=== PATIENT | female | born 1995 | race Caucasian/White ===

== ENCOUNTER 2019-08-26 18:24 | Emergency (ER) | payer BC, SELFPAY ==
--- NOTE | 2019-08-26 18:25 | ED.CHESTPAIN ---
HPI - Chest Pain General Chief Complaint: Chest Pain Stated Complaint: chest tightness/sob/heart racing/light headed Time Seen by Provider: 08/26/19 18:33 Source: patient and RN notes reviewed Mode of arrival: ambulatory Limitations: no limitations History of Present Illness HPI narrative: 24-year-old female presents with concern for mid sternal chest pain that was present when she woke up this morning. Reports an instance around 230 this afternoon where she felt like she had a fast heartbeat, and had shortness of breath, hot flashes, sweats. Reports those symptoms lasted about 1 hour. She reports the chest pain continues. She reports history of anxiety, depression with panic attacks in the past, however reports the symptoms are slightly different than her previous panic attacks. MD complaint: chest pain Related Data Allergies Allergy/AdvReac Type Severity Reaction Status Date / Time No Known Allergies Allergy Mild Verified 07/05/16 14:24 Review of Systems Review of Systems: Narrative: CONSTITUTIONAL: Denies malaise, chills, sweats, or fever. EYES: Denies visual changes, redness, or discharge. ENT: Denies rhinorrhea, congestion, sinus pain, otalgia or sore throat. CARDIOVASCULAR: Reports midsternal chest pain, palpitations earlier today. Denies edema. RESPIRATORY: Denies cough or dyspnea. Reports chest pain worsens with deep breathing GASTROINTESTINAL: Denies abdominal pain, nausea, vomiting, diarrhea SKIN: Denies rash or itching. MUSCULOSKELETAL: Denies back pain, joint pain, or myalgia. NEUROLOGIC: Denies numbness, weakness, or headache. PSYCHIATRIC: Reports history of anxiety or depression. All systems reviewed & are unremarkable except as noted in HPI and below PMFSH Comments At time of signature, agree with nursing past medical, surgical, social and family history. There is no relevant family history pertinent to the presenting complaint Exam Narrative: Exam Narrative: GENERAL: Well-appearing, well-nourished, and in no acute distress. HEAD: Normocephalic, atraumatic. EYES: PERRLA, conjunctivae clear, and EOMI. No nystagmus. ENT: Nares clear, turbinates pink, no rhinorrhea or epistaxis. Mucous membranes moist. TM pearly roach with sharp light reflex bilaterally; no tragal tenderness. Oropharynx without erythema or lesions. Tonsils not enlarged and without exudate. NECK: Supple. No lymphadenopathy. No jugular venous distension, thyromegaly, or carotid bruits. Carotids were easily palpable bilaterally. CHEST: No respiratory distress. Clear to auscultation. No bony deformities, no asymmetry. Speaks in full sentences. Chest pain reproducible with sternal rub. HEART: Regular rate and rhythm. No murmur heard. Normal peripheral pulses. ABDOMEN: Soft, nontender, nondistended, normal active bowel sounds, no palpable masses. EXTREMITIES: Normal range of motion. No edema. Normal strength and sensation. SKIN: Warm, dry, no rash. NEURO: Alert and oriented x3. No focal deficits PSYCH: Normal mood and affect Course Course Emergency Course: Discussed with patient limited diagnostic availability at the [facility], option of transferring to the emergency department for further evaluation. Patient and her mother chooses this time to not seek further evaluation in the emergency department, understand reasons to seek treatment if symptoms worsen or do not improve. Patient is aware of, understands and agrees to treatment plan. Anticipatory guidance given. Patient agrees to follow-up as directed and is aware of reasons to seek care at the emergency department. Portions of this record may have been created with voice recognition software Vital Signs Vital signs: Vital Signs Temperature 98.6 F 08/26/19 18:26 Pulse Rate 54 L 08/26/19 18:26 Respiratory Rate 16 08/26/19 18:26 Blood Pressure 127/56 L 08/26/19 18:26 Pulse Oximetry 100 08/26/19 18:26 Temperature 98.6 F 08/26/19 18:26 Pulse Rate 54 L 08/26/19 18:26 Respirator
[2019-08-26 18:26] VITALS: BP 127/56; PULSE 54; RESP 16; TEMP 37; O2SAT 100
--- NOTE | 2019-08-26 18:39 | ECG_ITS ---
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
--- NOTE | 2019-08-26 18:55 | PC.NURSE ---
After review of EKG, exam and discussion--Radha Flores NP -- will go to ED if symptoms change or worsen
== END 2019-08-26 19:00 | disposition home or self-care (01) ==
PROVIDERS: Emergency Provider Nurse Practitioner
DX: R07.9 Chest pain, unspecified (principal)
CPT/HCPCS: 93005; 99203; G0463

== ENCOUNTER 2021-06-03 17:44 | Emergency (ER) | payer BC, SELFPAY ==
--- NOTE | ~2021-06-03 | US_ITS ---
EXAMINATION: US OB <= 14 weeks fetus EXAM DATE: 06/03/2021 18:34 INDICATION: and vaginal bleeding. 1st trimester. TECHNIQUE: Pelvic obstetrical transabdominal sonogram was performed by a technologist. There are mu ltiple grayscale and Doppler images available for interpretation. There are no earlier studies of th is gestation for comparison. FINDINGS: Uterus measures 13.6 x 8.1 x 7.2 cm. Endometrial stripe measures 23 mm, thickened, could be decidual reaction given history provided. There is no intrauterine gestation identified. There is no free pelvic fluid. Right adnexa: The ovary is not identified. There is no adnexal mass. Left adnexa: The ovary is not identified. There is no adnexal mass. IMPRESSION: No intrauterine or extrauterine gestation sac identified. Thickened endometrium, could be decidual reaction. Retained products of conception not excludable. Clinical correlation, consider fo llow-up exam. Reviewed, dictated and finalized at location A. E MASTER IMPRESSION: No intrauterine or extrauterine gestation sac identified. Thickened endometrium, could be decidual reaction. Retained products of conception not e xcludable. Clinical correlation, consider follow-up exam.
--- NOTE | 2021-06-03 18:08 | ED.ABDPAIN ---
HPI - Abdominal Pain General Chief Complaint: Vaginal Bleeding Stated Complaint: problem Time Seen by Provider: 06/03/21 18:02 History of Present Illness HPI narrative: Patient is a 25-year-old female approximately 14 weeks who comes into the ED today complaining of vaginal bleeding and lower abdominal pain. Patient reports that she has been bleeding for the last 2 to 3 days. Changing pads every 3-4 hours on average. He has been having lower abdominal pain that started earlier today. Pain is seems to be intermittent, waxing and waning in severity. Denies any urinary symptoms, fevers or any other concerns. G1, P0. Followed by Dr. Gordon and Dr. Downs. Related Data Home Medications Medication Instructions Recorded Confirmed metoclopramide HCl 06/03/21 Allergies Allergy/AdvReac Type Severity Reaction Status Date / Time No Known Allergies Allergy Mild Verified 07/05/16 14:24 Review of Systems Constitutional: Constitutional: Reports as per HPI, Denies fever(s), Denies night sweats and Denies weakness Cardiovascular: Cardiovascular: Denies chest pain, Denies edema, Denies leg edema, Denies dyspnea and Denies orthopnea Respiratory: Respiratory: Denies cough and Denies dyspnea Gastrointestinal: Gastrointestinal: Denies abdominal pain, Denies constipation, Denies diarrhea, Denies nausea and Denies vomiting Genitourinary: Genitourinary: Reports as per HPI Musculoskeletal: Musculoskeletal: Denies abnormal gait, Denies back pain, Denies numbness and Denies tingling Neurologic: Denies Abnormal speech present, Denies abnormal gait, Denies numbness, Denies tingling and Denies weakness Psychiatric: Psychiatric: Denies homicidal ideation and Denies suicidal ideation Exam Narrative: Uncomfortable appearing Const: General: cooperative, healthy appearing, comfortable, no acute distress, well developed, alert, awake and Physically active Orientation/consciousness: patient oriented x3 HENMT: Head: normal to inspection, normocephalic and atraumatic Ears: external ears normal General nose exam: Normal external nose present Eyes: Pupils: Equal, round and reactive pupils present EOM: EOMs intact bilaterally Neck: Neck: normal visual inspection Chest: Chest palpation & inspection: normal inspection of the chest and no tenderness Resp: Effort & Inspection: normal respiratory effort and able to speak in complete sentences Auscultation: clear to auscultation bilaterally Cardio: Rate: regular rate Rhythm: regular rhythm GI: Inspection: normal to inspection GI Palp: Yes abdominal tenderness and Yes Other GI palpation findings present (Tender to palpate over lower abdomen) : General: Yes no CVA tenderness Other: Patient in the process of passing products of conception Back/Spine/Pelvis: Back: no CVA tenderness Skin: General skin exam: normal color and no rashes or lesions noted Lesions: no lesions Neuro: General: patient oriented x3, no focal motor deficits and CN's II-XI intact bilaterally Cranial nerves: Yes Equal, round and reactive pupils present Speech: No Abnormal speech present Extrem: General: normal to inspection and full ROM Psych: Appearance: grossly normal and well kempt Mental Status: mental status grossly normal Speech and movement: Normal speech and movement present Affect: normal affect Thought process: Normal thought process present Course Course Emergency Course: 6:40 PM Patient's Mom yelled out saying that patient was bleeding heavily. I went into room accompanied by female nurse and there were products of conception that had been passed onto the bed. Umbilical cord still in place. I went and got Dr. Morales for help who passed the placenta. Products and placenta placed in a sterile container. Minimal bleeding afterwards. Dr. Gordon (OBGYN) paged. 7:14 PM Case discussed with Dr. Downs (OBGYN) covering for Dr. Gordon. As long as patient is not bleeding heavily she
[2021-06-03 18:18] LABS: Basophils Percent Auto 0.2 % (0.2-1.2); Eosinophils Percent Auto 0.2 % (0-4.4); Hematocrit 34.4 % (37.0-47.0); Hemoglobin 12.5 g/dL (12.0-15.0); Immature Granulocyte Absolute 0.04 K/mm3 (0.00-0.031); Immature Granulocyte Percent A 0.3 % (0-0.5); Lymphocytes Absolute Auto 1.58 K/mm3 (0.9-3.2); Lymphocytes Percent Auto 12.9 % (18.3-44.2); Mean Corpuscular HGB Conc 36.3 g/dl (32-36); Mean Corpuscular Hemoglobin 30.9 pg (26-34); Mean Corpuscular Volume 84.9 fl (80-100); Mean Platelet Volume 10.2 fl (7.4-10.4); Monocytes Absolute Auto 0.6 K/mm3 (0.1-0.6); Monocytes Percent Auto 4.7 % (2.6-8.5); Neutrophils Percent Auto 81.7 % (45.5-73.1); Platelet Count Result 193 k/mm3 (150-375); Red Blood Count 4.05 M/mm3 (4.2-5.4); Red Cell Distribution Width 12.9 % (11.5-14.5); White Blood Count 12.2 K/mm3 (4.5-10.0)
[2021-06-03 18:28] LABS: Alanine Aminotransferase 14 U/L (4-35); Albumin Level 4.1 g/dL (3.5-5.1); Alkaline Phosphatase 55 U/L (38-126); Anion Gap 9 mmol/L (8-16); Aspartate Amino Transferase 21 U/L (14-36); Bilirubin,Total 0.3 mg/dL (0.2-1.3); Blood Urea Nitrogen 7 mg/dL (7-17); Calcium 9.4 mg/dL (8.4-10.2); Carbon Dioxide 21 mmol/L (22-30); Chloride 104 mmol/L (98-107); Estimated CRCL calculation 204 ml/min; Estimated Glomerular Filt Rate > 60; Glucose 166 mg/dL (65-110); Potassium 3.5 mmol/L (3.4-5.0); Sodium 134 mmol/L (137-145)
[2021-06-03] MEDS: HYDROcodone/acetaminophen (*CRX) 5-325 MG TABLET 1 TAB PO (19:38)
--- NOTE | 2021-06-03 19:47 | PC.NURSE ---
acreage reporter notified of demise
[2021-06-03 20:58] VITALS: BP 132/76; PULSE 76; RESP 18; O2SAT 99
== END 2021-06-03 20:59 | disposition home or self-care (01) ==
PROVIDERS: Physician Assistant Medical; Emergency Provider Emergency Medicine
DX: O03.9 Complete or unspecified spontaneous abortion without complication (principal)
CPT/HCPCS: 36415; 76801; 80053; 84702; 85025; 85461; 88305; 88307; 99284; A9270

== ENCOUNTER 2021-06-09 12:08 | Day surgery (SDC) | payer BC, SELFPAY ==
--- NOTE | ~2021-06-09 | US_ITS ---
EXAMINATION: US pelvic complete w TV EXAM DATE: 06/09/2021 15:02 INDICATION: Pelvic pain, recent miscarriage. Vaginal bleeding. TECHNIQUE: Pelvic transabdominal and transvaginal sonogram was performed. There are multiple graysca le and Doppler images available for interpretation. Comparison is made to prior examination from 05/23. FINDINGS: Uterus measures 11.6 x 7.0 x 6.2 cm. Endometrial stripe measures 24 mm, within normal limi ts. There is no free pelvic fluid. Right adnexa: The ovary measures 3.4 x 2.3 x 2.2 cm and is morphologically normal. Ovarian vascular f low confirmed. Left adnexa: The ovary measures 1.8 x 2.2 x 3.4 cm and is morphologically normal. Ovarian vascular fl ow confirmed. IMPRESSION: Persistent abnormally thickened endometrium at 24 mm, suspicious for retained products of conception. I discussed this finding with Stu Harrison MD at 06/09/2021 15:12 [employer] PLANT [employer]IST. Reviewed, dictated and finalized at location B. PLANT SPECIALIST IMPRESSION: Persistent abnormally thickened endometrium at 24 mm, suspicious fo r retained products of conception. I discussed this finding with Stu Harrison MD at 06/09/2021 15:12 G[employer] PLANT SPECIALIST.
[2021-06-09 12:17] VITALS: BP 129/71; PULSE 97; RESP 18; TEMP 37.1; O2SAT 100
[2021-06-09 13:44] LABS: Basophils Absolute Auto 0.1 K/mm3 (0.0-0.1); Basophils Percent Auto 0.6 % (0.2-1.2); Eosinophils Absolute Auto 0.2 K/mm3 (0-0.3); Eosinophils Percent Auto 1.9 % (0-4.4); Hematocrit 36.3 % (37.0-47.0); Hemoglobin 12.7 g/dL (12.0-15.0); Immature Granulocyte Absolute 0.03 K/mm3 (0.00-0.031); Immature Granulocyte Percent A 0.4 % (0-0.5); Lymphocytes Percent Auto 30.5 % (18.3-44.2); Mean Corpuscular Hemoglobin 30.5 pg (26-34); Mean Corpuscular Volume 87.1 fl (80-100); Mean Platelet Volume 9.7 fl (7.4-10.4); Monocytes Absolute Auto 0.5 K/mm3 (0.1-0.6); Monocytes Percent Auto 6.4 % (2.6-8.5); Neutrophils Absolute Auto 4.7 K/mm3 (1.3-6.7); Neutrophils Percent Auto 60.2 % (45.5-73.1); Platelet Count Result 244 k/mm3 (150-375); Red Blood Count 4.17 M/mm3 (4.2-5.4); Red Cell Distribution Width 12.9 % (11.5-14.5); White Blood Count 7.9 K/mm3 (4.5-10.0)
--- NOTE | 2021-06-09 14:44 | ED.FEMALEGU ---
HPI - Female Genitourinary General Chief complaint: UNION CARPENTER Stated complaint: MISCARRAGE RESIDUAL ABD PAIN Time Seen by Provider: 06/09/21 13:16 History of Present Illness HPI Narrative: Patient is a 25-year-old female who presents ER with pelvic discomfort and vaginal bleeding. Ongoing since having a miscarriage last week. Was seen by her clinical research manager 3 days ago and was told to take ibuprofen and Tylenol as needed for pain. She has no fevers or chills or sweats. She reports she is bleeding through 1 pad an hour since she was evaluated 4 days ago. She reports mild dizziness when standing up. She endorses fatigue. No urinary frequency urgency or dysuria. Related Data Home Medications Medication Instructions Recorded Confirmed venlafaxine mg PO 06/09/21 Allergies Allergy/AdvReac Type Severity Reaction Status Date / Time No Known Allergies Allergy Mild Verified 06/09/21 14:57 Review of Systems Review of Systems: All systems reviewed & are unremarkable except as noted in HPI and below Constitutional: Constitutional: Denies chills and Reports fatigue ENT: Denies nasal congestion and Denies sore throat Gastrointestinal: Gastrointestinal: Reports abdominal pain, Denies nausea and Denies vomiting Genitourinary: Genitourinary: Reports abnormal vaginal bleeding, Denies dysuria, Reports pelvic pain, Denies urinary incontinence and Denies vaginal discharge PMFSH Past Medical History Medical History (Updated 06/09/21 @ 15:34 by Stu Harrison MD) Healthy female adult Surgical History Surgical History (Updated 06/09/21 @ 14:46 by Stu Harrison MD) No history of previous surgery Social History Social History (Updated 06/09/21 @ 14:46 by Stu Harrison MD) Smoking status: Never smoker Exam Narrative: GENERAL: Well-appearing, well-nourished, and in no acute distress. HEAD: Normocephalic, atraumatic. CHEST: Clear to auscultation. No respiratory distress. HEART: Regular rate and rhythm. Normal peripheral pulses. ABDOMEN: Soft, mild suprapubic discomfort without guarding, nondistended. UNION CARPENTER: Normal external genitalia. Scant amount of blood tinged mucus discharge from the cervical os. No CMT. Os is closed. EXTREMITIES: Normal range of motion. No edema. SKIN: Warm, dry, no rash. NEURO: Alert and oriented x3. PSYCH: Normal mood and affect. Course Course Emergency Course: Discussed case with Dr. Gordon. He will take the patient to the OR this evening. Vital Signs Vital signs: Vital Signs Temperature 98.7 F 06/09/21 12:17 Pulse Rate 97 06/09/21 12:17 Respiratory Rate 18 06/09/21 12:17 Blood Pressure 129/71 06/09/21 12:17 Pulse Oximetry 100 06/09/21 12:17 Temperature 98.7 F 06/09/21 12:17 Pulse Rate 65 06/09/21 15:02 Respiratory Rate 18 06/09/21 15:02 Blood Pressure 113/63 06/09/21 15:02 Pulse Oximetry 100 06/09/21 15:02 MDM - Female Genitourinary Lab Data Result diagrams: 06/09/21 13:30 Labs: Lab Results 06/09/21 06/09/21 Range/Units 13:30 13:30 WBC 7.9 (4.5-10.0) K/mm3 RBC 4.17 L (4.2-5.4) M/mm3 Hgb 12.7 (12.0-15.0) g/dL Hct 36.3 L (37.0-47.0) % MCV 87.1 (80-100) fl MCH 30.5 (26-34) pg MCHC 35.0 (32-36) g/dl RDW 12.9 (11.5-14.5) % Plt Count 244 (150-375) k/mm3 MPV 9.7 (7.4-10.4) fl Immature Gran % (Auto) 0.4 (0-0.5) % Neut % (Auto) 60.2 (45.5-73.1) % Lymph % (Auto) 30.5 (18.3-44.2) % [place] % (Auto) 6.4 (2.6-8.5) % Eos % (Auto) 1.9 (0-4.4) % Baso % (Auto) 0.6 (0.2-1.2) % Lymph # (Auto) 2.40 (0.9-3.2) K/mm3 [place] # (Auto) 0.5 (0.1-0.6) K/mm3 Eos # (Auto) 0.2 (0-0.3) K/mm3 Baso # (Auto) 0.1 (0.0-0.1) K/mm3 Abs Immat Gran (auto) 0.03 (0.00-0.031) K/mm3 Absolute Neuts (auto) 4.7 (1.3-6.7) K/mm3 Absolute Nucleated RBC 0.0 (0.0-0.012) K/mm3 Nucleated RBC % 0.0 (0.0-0.2) % Beta HCG, Quant 510.04 mIU/ML UCG Bedside Result
[2021-06-09] MEDS: KETOROLAC 30 MG/ML VIAL (*BKC) IV PUSH (14:58)
[2021-06-09 15:02] VITALS: BP 113/63; PULSE 65; RESP 18; O2SAT 100
--- NOTE | 2021-06-09 15:40 | PM.IMHP ---
H&P: HPI History of Present Illness Date/Time: 06/09/21 15:40 Chief Complaint: vaginal bleeding complete Narrative: 25 yo who presents to the ED for heavy vaginal bleeding. Pt had been having vaginal bleeding throughout her early due to a subchorionic hemorrhage. Pt presented to the ED on 06/03/21 at 14 weeks gestation with complaints of heavy bleeding and passing of tissue. Pt had pelvic US which showed no signs of intrauterine . Pt was seen outpatient and was hemodynamically stable with minimal continued bleeding. Beta HCG levels have been trending downward. Pt presents today complaining of heavy vaignal bleeding. Pt states she has been bleeding through over a pad per hour for a few days this week. She denies any chest pain, syncope, fatigue, palpitation. She denies fevers, chlls, nausea, vomiting. Review of Systems Cardiovascular: Cardiovascular: Denies chest pain, Denies leg edema, Denies palpitations, Denies dyspnea and Denies dyspnea on exertion Respiratory: Respiratory: Denies cough, Denies dyspnea and Denies dyspnea on exertion Gastrointestinal: Gastrointestinal: Denies abdominal pain, Denies constipation, Denies diarrhea, Denies nausea and Denies vomiting Genitourinary: Genitourinary: Denies hematuria, Denies urinary frequency, Denies dysuria, Denies pelvic pain, Denies urinary incontinence and Denies vaginal discharge Neurologic: Reports system reviewed and no additional complaints, except as documented Psychiatric: Psychiatric: Reports no additional psychiatric complaints Endocrine: Endocrine: Denies palpitations PMF Past Medical History Medical History (Updated 06/09/21 @ 15:46 by Willard Gordon MD) Obesity Surgical History Surgical History (Updated 06/09/21 @ 14:46 by Stu Harrison MD) No history of previous surgery Social History Social History (Updated 06/09/21 @ 14:46 by Stu Harrison MD) Smoking status: Never smoker Meds Home Medications and Allergies Home Medications Medication Instructions Recorded Confirmed Type venlafaxine mg PO 06/09/21 History Allergies Allergy/AdvReac Type Severity Reaction Status Date / Time No Known Allergies Allergy Mild Verified 06/09/21 14:57 Vital Signs Vital Signs - 24 hr 06/09/21 12:17 06/09/21 15:02 Temperature 37.1 C Pulse Rate 97 65 Respiratory Rate 18 18 Blood Pressure 129/71 113/63 Pulse Oximetry 100 100 Exam Const: General: no acute distress Eyes: EOM: EOMs intact bilaterally Neck: Neck: supple Thyroid: thyroid normal Chest: Breast/axilla inspection: normal inspection of the breasts Breast/axilla palpation: normal palpation of the breasts, normal palpation of the axillae and no axillary lymphadenopathy Resp: Effort & Inspection: normal respiratory effort Auscultation: clear to auscultation bilaterally Cardio: Rate: regular rate Rhythm: regular rhythm GI: Inspection: non-distended GI Palp: Yes Soft to palpation, No Tenderness to palpation present (GI) and No Guarding due to palpation present (GI) Auscultation: normal bowel sounds : General: No bladder normal to palpation External Female Exam: normal external appearance Speculum Exam - Vagina: normal vaginal discharge and vaginal bleeding Speculum Exam - Cervix: nontender Skin: General skin exam: normal color and no rashes or lesions noted Neuro: Cognition (Neuro): normal cognition Speech: normal speech Extrem: General: normal to inspection and no edema Psych: Mental Status: mental status grossly normal Affect: normal affect H&P: Results Labs Labs: Short CBC 06/09/21 Range/Units 13:30 WBC 7.9 (4.5-10.0) K/mm3 Hgb 12.7 (12.0-15.0) g/dL Hct 36.3 L (37.0-47.0) % Plt Count 244 (150-375) k/mm3 Assessment and Plan Assessment and plan (1) Retained products of conception: Status: Acute Assessment and Plan: Pt presents to ED with complaint of heavy vag
--- NOTE | 2021-06-09 15:44 | WPDANESEPPF ---
Anes - Initial Pre Proc Eval Procedure: Operation Date: 06/09/21 16:00 Proposed Procedures p Suction Dilatation and Curettage - Willard Gordon MD Date/Time: 06/09/21 15:44 Surgeon: Willard Gordon MD Pre Op Diagnosis: MISCARRAGE RESIDUAL ABD PAIN Patient Data Age: 25 Gender: F Height: 1.75 m Weight: 121 kg Last Vital Signs Temp 37.1 C 06/09/21 12:17 Pulse 65 06/09/21 15:02 Resp 18 06/09/21 15:02 BP 113/63 06/09/21 15:02 Pulse Ox 100 06/09/21 15:02 Allergies Allergy/AdvReac Type Severity Reaction Status Date / Time No Known Allergies Allergy Mild Verified 06/09/21 14:57 Home Medications Medication Instructions Recorded Confirmed Type venlafaxine mg PO 06/09/21 History Laboratory Tests 06/09/21 06/09/21 13:30 13:30 WBC 7.9 K/mm3 K/mm3 (4.5-10.0) RBC 4.17 M/mm3 L M/mm3 (4.2-5.4) Hgb 12.7 g/dL g/dL (12.0-15.0) Hct 36.3 % L % (37.0-47.0) MCV 87.1 fl fl (80-100) MCH 30.5 pg pg (26-34) MCHC 35.0 g/dl g/dl (32-36) RDW 12.9 % % (11.5-14.5) Plt Count 244 k/mm3 k/mm3 (150-375) MPV 9.7 fl fl (7.4-10.4) Immature Gran % (Auto) 0.4 % % (0-0.5) Neut % (Auto) 60.2 % % (45.5-73.1) Lymph % (Auto) 30.5 % % (18.3-44.2) [place] % (Auto) 6.4 % % (2.6-8.5) Eos % (Auto) 1.9 % % (0-4.4) Baso % (Auto) 0.6 % % (0.2-1.2) Lymph # (Auto) 2.40 K/mm3 K/mm3 (0.9-3.2) [place] # (Auto) 0.5 K/mm3 K/mm3 (0.1-0.6) Eos # (Auto) 0.2 K/mm3 K/mm3 (0-0.3) Baso # (Auto) 0.1 K/mm3 K/mm3 (0.0-0.1) Abs Immat Gran (auto) 0.03 K/mm3 K/mm3 (0.00-0.031) Absolute Neuts (auto) 4.7 K/mm3 K/mm3 (1.3-6.7) Absolute Nucleated RBC 0.0 K/mm3 K/mm3 (0.0-0.012) Nucleated RBC % 0.0 % % (0.0-0.2) Beta HCG, Quant 510.04 mIU/ML mIU/ML Patient hx anesthesia problems: none Family hx anesthesia problems: none Results Review: All pre-operative results and documents have been reviewed as part of the pre-operative evaluation. [facility] Past Medical History Medical History (Updated 06/09/21 @ 15:46 by Willard Gordon MD) Obesity Surgical History Surgical History (Updated 06/09/21 @ 14:46 by Stu Harrison MD) No history of previous surgery Social History Social History (Updated 06/09/21 @ 14:46 by Stu Harrison MD) Smoking status: Never smoker Anes - Eval Final PreProcedure Day of Procedure 06/09/21 15:44 Patient weight: overweight Heart: regular rate and rhythm Lungs: clear to auscultation and normal air movement Airway: Mallampati scale class II Neurological: alert and oriented Last oral intake: >/= 8 hours ASA classification: II Emergent: no Anesthetic plan: proceed Anesthesia type and monitoring: general Results Review: All pre-operative results and documents have been reviewed as part of the pre-operative evaluation. Informed Consent: The patient's anesthetic plan and its attendant risks and benefits were discussed with the patient/family/POA. Questions were solicited and answers provided to the satisfaction of the patient/family/POA.
--- NOTE | 2021-06-09 15:48 | WPDHPUPDATE1 ---
History and Physical Update Update Date/Time: 06/09/21 15:48 History and Physical has been reviewed, including an updated exam of the patient. There are NO changes in the patient's condition. Risks, benefits, and alternatives have been discussed and questions answered. Patient agrees to proceed with procedure.
[2021-06-09 16:00] VITALS: BP 136/72; PULSE 71; RESP 18; TEMP 36.1; O2SAT 100
[2021-06-09] MEDS: LACTATED RINGERS 1,000 ML 30 ML IV CONT (16:00)
[2021-06-09 16:31] VITALS: BP 125/60; PULSE 83; RESP 16; O2SAT 98
--- NOTE | 2021-06-09 16:32 | W.PM.PROC2 ---
Procedure Note - Detailed Date of Procedure 06/09/21 Pre-op Diagnosis complete complicated by delayed hemorrhage retained products of conception Post-op Diagnosis same Procedure Performed Suction Dilation & curettage Surgeon Willard Gordon MD Anesthesia MAC Indications complete complicated by delayed hemorrhage retained products of conception Findings intrauterine products of conception Description of Procedure The patient was taken to the operating room after persistent heavy vaginal bleeding 1 week after complete . Pelvic US suspected retained products of conception. The risks, benefits and alternatives of the procedure were reviewed with the patient and informed consent was obtained. The patient was taken to the OR and anesthesia was noted to be adequate. The patient was placed in the dorsolithotomy position. Pelvic exam was performed with findings noted above. The patient was prepped and draped in the usual sterile fashion. Sterile speculum was placed in the vagina and the cervix was grasped with a tenaculum. The cervix was dilated further to allow for passage of a 8 mm suction curette. The 8 mm suction curette was gently advanced to the fundus, suction was activated, and the tip was rotated while being withdrawn to clear the uterus of products. This procedure was performed under ultrasound guidance. This suction process was repeated 3 additional times due to the quantity of material in the uterus. The sharp curette was introduced and advanced to the fundus to remove any remaining products, again under ulstrasound guidance. The suction curette was reintroduced one final time to ensure all products had been removed. The tenaculum was removed. Good hemostasis was noted. Instrument, sponge, and sharp counts were correct. Patient tolerated the procedure well and was taken to the recovery room in stable condition. Estimated Blood Loss 10 Urine Output 25 Drains No Packing No Pathology yes (products of conception ) Complications No immediate complications Condition stable Disposition PACU
[2021-06-09 17:00] VITALS: BP 115/68; PULSE 71; RESP 16; O2SAT 99
[2021-06-09] MEDS: oxyCODONE HCL (*CRX) 5 MG TAB IR PO (17:19)
[2021-06-09 17:30] VITALS: BP 119/69; PULSE 73; RESP 16
== END 2021-06-09 17:39 | disposition home or self-care (01) ==
LOC: ANHED 15:34 → ANHSURGERY 15:42
PROVIDERS: Emergency Provider Emergency Medicine; Visit Provider Student in an Organized Health Care Education/Training Program
PROC: (CPT 59812; principal; 2021-06-09 16:00)
DX: O03.6 Delayed or excessive hemorrhage following complete or unspecified spontaneous abortion (principal)
CPT/HCPCS: 59812; 36415; 76830; 76856; 81025; 84702; 85025; 88305; 96374; 99285; A9270; J1100; J1885; J2001; J2250; J2405; J2704; J3010; J7120

== ENCOUNTER 2023-01-30 14:20 | Outpatient (CLI) | payer BC, SELFPAY | END 2023-01-30 14:21 | disposition home or self-care (01) | LOC: ANHBWCAUD 14:20 | PROVIDERS: Visit Provider Otolaryngology | DX: H69.83 Other specified disorders of Eustachian tube, bilateral (principal); H90.11 Conductive hearing loss, unilateral, right ear, with unrestricted hearing on the contralateral side | CPT/HCPCS: 92557; 92567 ==

== ENCOUNTER 2023-05-08 10:57 | Emergency (ER) | payer BC, SELFPAY ==
[2023-05-08 11:09] VITALS: BP 137/82; PULSE 82; RESP 20; TEMP 36.3; O2SAT 100
--- NOTE | 2023-05-08 11:42 | ED.BACK ---
HPI - Back Pain/Injury General Chief Complaint: Back Pain/Injury Stated Complaint: Back pain Time Seen by Provider: 05/08/23 11:08 History of Present Illness HPI Narrative: Patient is a 27-year-old female who presents ER with low back pain. Intermittent over the last year and a half. She had an x-ray a couple of months ago. She has been attending physical therapy with minimal improvement. She has been alternating Tylenol and ibuprofen. She reports she will get some numbness that goes down the legs bilaterally when she sits for too long and sometimes when she lies down flat. No physical weakness. She had sudden onset pain that caused her to urinate herself today but prior to that she has had no issue with sensing when she needs to urinate or defecate. She has no saddle anesthesia. No fevers or chills or sweats. Related Data Home Medications Medication Instructions Recorded Confirmed tizanidine 4 mg capsule 4 mg PO QHS PRN 12/29/22 02/15/23 Allergies Allergy/AdvReac Type Severity Reaction Status Date / Time No Known Allergies Allergy Mild Verified 05/08/23 11:12 Review of Systems Review of Systems: All systems reviewed & are unremarkable except as noted in HPI and below Constitutional: Constitutional: Denies chills, Denies fatigue and Denies fever(s) ENT: Denies nasal congestion and Denies sore throat Respiratory: Respiratory: Denies cough and Denies dyspnea Gastrointestinal: Gastrointestinal: Denies abdominal pain, Denies nausea and Denies vomiting Musculoskeletal: Musculoskeletal: Reports back pain, Denies arthralgias and Denies joint swelling Neurologic: Denies headache(s), Denies focal weakness and Reports numbness PMFSH Past Medical History Medical History Obesity Surgical History Surgical History No history of previous surgery Social History Social History Smoking status: Never smoker Lack of Transportation: No Lack of Food: Never True Current Housing: I Have Housing Concerned About Future Housing: No Difficulty Paying Gas/Electric Bills: No Difficulty Paying for Meds: No Currently Unemployed: No Education: High School Diploma/GED Difficulty w/ Childcare or Family Care: No Exam Narrative: GENERAL: Well-appearing, well-nourished, and in no acute distress. HEAD: Normocephalic, atraumatic. ENT: Mucous membranes moist. Back: Mild tenderness in the low lumbar in bilateral SI regions. No step-offs. No T-spine tenderness. EXTREMITIES: Normal range of motion. Normal strength. NEURO: Alert and oriented x3. PSYCH: Normal mood and affect. Course Course Emergency Course: Discussed treatment with muscle relaxers and a Medrol Dosepak. Recommend follow-up with PCP. May need outpatient MRI to rule out spinal stenosis. Vital Signs Vital signs: Vital Signs Temperature 97.4 F L 05/08/23 11:09 Pulse Rate 82 05/08/23 11:09 Respiratory Rate 20 05/08/23 11:09 Blood Pressure 137/82 05/08/23 11:09 Pulse Oximetry 100 05/08/23 11:09 Temperature 97.4 F L 05/08/23 11:09 Pulse Rate 82 05/08/23 11:09 Respiratory Rate 20 05/08/23 11:09 Blood Pressure 137/82 05/08/23 11:09 Pulse Oximetry 100 05/08/23 11:09 Discharge Plan Discharge Clinical Impression: Sciatica Patient Disposition: Home, Self-Care Condition: Stable Instructions: Sciatica (ED) Additional Instructions: Return to the ER if you have increased pain in your back, you develop lower extremity weakness/numbness/paralysis, you have numbness or tingling in your private parts, or you are unable to control your ability to urinate/stool. Follow-up with your primary care doctor. You may require an MRI to rule out spinal stenosis or other neurologic issue. Prescriptions: New methylprednisolone [Medrol
== END 2023-05-08 12:01 | disposition home or self-care (01) ==
PROVIDERS: Emergency Provider Emergency Medicine
DX: M54.42 Lumbago with sciatica, left side (principal); M54.41 Lumbago with sciatica, right side; E66.9 Obesity, unspecified; Z68.41 Body mass index [BMI] 40.0-44.9, adult
CPT/HCPCS: 99283

== ENCOUNTER 2023-06-26 12:35 | Emergency (ER) | payer BC, SELFPAY ==
[2023-06-26 12:51] VITALS: BP 126/73; PULSE 98; RESP 16; TEMP 36.9; O2SAT 98
--- NOTE | 2023-06-26 13:03 | ED.URI ---
HPI - URI/Sore Throat General Chief Complaint: Upper Respiratory Infection Stated Complaint: Headache/Shortness of Breath/Sore Throat Source: patient, RN notes reviewed and old records reviewed Mode of arrival: ambulatory Limitations: no limitations History of Present Illness HPI Narrative: 27-year-old female presents to [facility] with complaints this scratchy throat, sinus congestion, headache, bilateral ear pain, and myalgias this started 3 days ago. Patient denies chest pain, dizziness, weakness, nausea/vomiting, fevers. Patient is taking Tylenol /ibuprofen. MD elicited complaint: nasal congestion and sinus pain Onset (ago): day(s) (3) Related Data Home Medications Medication Instructions Recorded Confirmed tizanidine 4 mg capsule 4 mg PO QHS PRN 12/29/22 02/15/23 Allergies Allergy/AdvReac Type Severity Reaction Status Date / Time No Known Allergies Allergy Mild Verified 05/08/23 11:12 Review of Systems Constitutional: Constitutional: Reports as per HPI, Reports body ache(s) and Reports fatigue Eyes: Eyes: Reports no additional eye complaints ENT: Reports otalgia, Reports nasal congestion and Reports sore throat Cardiovascular: Cardiovascular: Reports no additional cardiovascular complaints Respiratory: Respiratory: Reports as per HPI and Reports cough Neurologic: Reports system reviewed and no additional complaints, except as documented PMFSH Past Medical History Medical History Obesity Surgical History Surgical History No history of previous surgery Social History Social History Smoking status: Never smoker Lack of Transportation: No Lack of Food: Never True Current Housing: I Have Housing Concerned About Future Housing: No Difficulty Paying Gas/Electric Bills: No Difficulty Paying for Meds: No Currently Unemployed: No Education: High School Diploma/GED Difficulty w/ Childcare or Family Care: No Comments At the time of my signature, I reviewed and agree with the nursing past medical, surgical, social, and family history. There is no relevant family history pertinent to the patient complaint. Exam Const: General: cooperative, healthy appearing, no acute distress and well nourished Nutritional Appearance: well nourished Orientation/consciousness: patient oriented x3 Limitations: no limitations HENMT: Head: normal to inspection and normocephalic Ears: external ears normal, mastoids normal, Abnormal EAC present and TM abnormal with fluid behind the TM Face/Nose/Sinus: normal facial exam Face and sinus: normal facial exam Mouth: Yes Normal oral and palatal mucosa present, Yes oropharynx normal and Yes moist mucous membranes Throat: posterior oropharynx normal, tonsils normal, uvula midline and no uvular edema Eyes: General: appearance normal, both eyes and all related structures Sclera: sclerae normal Pupils: Equal, round and reactive pupils present Resp: Effort & Inspection: normal respiratory effort, able to speak in complete sentences, no audible wheezes, no cough, no respiratory distress and no retractions Auscultation: clear to auscultation bilaterally, no crackles, no rales, no rhonchi and no wheezes Cardio: Rate: regular rate Rhythm: regular rhythm Skin: General skin exam: normal color and no rashes or lesions noted Neuro: General: patient oriented x3 Cranial nerves: Yes Equal, round and reactive pupils present Psych: Appearance: grossly normal Course Course Emergency Course: Some parts of this dictation were generated by voice recognition software and may contain typographical and/or grammatical inaccuracies. Level of Care: Express Care Visit Vital Signs Vital signs: Vital Signs Temperature 98.5 F 06/26/23 12:51 Pulse Rate 98 06/26/23 12:51 Respiratory Rate 16
== END 2023-06-26 13:17 | disposition home or self-care (01) ==
PROVIDERS: Emergency Provider Registered Nurse; PCP Physician Assistant
DX: U07.1 COVID-19 (principal); E66.9 Obesity, unspecified
CPT/HCPCS: 87081; 87426; 87880; 99213; C9803; G0463

== ENCOUNTER 2024-09-23 11:27 | Emergency (ER) | payer OTHER, SELFPAY ==
[2024-09-23 11:45] VITALS: BP 124/60; PULSE 91; RESP 20; TEMP 36.8; O2SAT 98
--- NOTE | 2024-09-23 13:17 | ED.URI ---
HPI - URI/Sore Throat General Chief Complaint: Upper Respiratory Infection Stated Complaint: flu like symptoms Time Seen by Provider: 09/23/24 13:15 Source: patient, RN notes reviewed and old records reviewed Mode of arrival: ambulatory Limitations: no limitations History of Present Illness HPI Narrative: 29 year old female who presents to [facility] care with complaints of runny nose, cough, headache, some shortness of breath and some heaviness in chest which started about 2 weeks ago. Patient states that symptoms went away and then 3 days ago symptoms back again with cough runny nose headaches and some shortness of breath. Patient reports that she has been taking Ibuprofen, Tylenol, NyQuil and Sudafed. MD elicited complaint: cough and sore throat Onset (ago): week(s) (initally started 2 weeks ago then seemed to improve then back again 3 days ago.) Severity: moderate Able to tolerate fluids by mouth: Yes Treatments prior to arrival: acetaminophen, ibuprofen and other (Sudafed. NyQuil) Related Data Allergies Allergy/AdvReac Type Severity Reaction Status Date / Time No Known Allergies Allergy Mild Verified 09/23/24 11:48 Review of Systems Review of Systems: CONSTITUTIONAL:Reports malaise,no chills, sweats, or fever. EYES: Denies visual changes, redness, or discharge. ENT: Reports rhinorrhea, congestion, sinus pain,no otalgia and no sore throat. CARDIOVASCULAR: Denies chest pain, palpitations, or edema. RESPIRATORY: Reports cough.? some dyspnea. GASTROINTESTINAL: Denies abdominal pain, nausea, vomiting, diarrhea SKIN: Denies rash or itching. MUSCULOSKELETAL: Denies myalgia. NEUROLOGIC: Positive for headache. All systems reviewed & are unremarkable except as noted in HPI and below PMFSH Past Medical History Medical History (Updated 09/24/24 @ 15:10 by Idalmis Barajas NP) Miscarriage Ear infection History of strep sore throat Obesity Surgical History Surgical History (Updated 09/24/24 @ 15:06 by Idalmis Barajas NP) History of placement of ear tubes History of tonsillectomy and adenoidectomy Social History Social History (Updated 09/24/24 @ 15:03 by Idalmis Barajas NP) Smoking status: Current every day smoker Tobacco type: e-cigarettes/vaping Alcohol intake: unknown Substance use: unknown Lack of Transportation: No Lack of Food: Never True Current Housing: I Have Housing Concerned About Future Housing: No Difficulty Paying Gas/Electric Bills: No Difficulty Paying for Meds: No Currently Unemployed: No Education: High School Diploma/GED Difficulty w/ Childcare or Family Care: No Comments At time of signature, agree with nursing past medical, surgical, social and family history. There is no relevant family history pertinent to the presenting complaint Exam Narrative: GENERAL: Well-appearing, well-nourished, and in no acute distress. HEAD: Normocephalic EYES: PERRLA, conjunctivae clear ENT: Nares clear, turbinates edematous and erythematous, clear discharge, sinus pressure, headache. Mucous membranes moist. TM pearly roach with dull light reflex bilaterally; no tragal tenderness. Oropharynx erythematous without lesions. Tonsils not enlarged and without exudate, no drooling, no hoarseness, no trismus, uvula midline.post nasal drainage NECK: Supple. No lymphadenopathy CHEST: Clear to auscultation, breath sounds equal. No wheezing, rhonchi, rales, or stridor. No respiratory distress, speaks in full sentences. HEART: Regular rate and rhythm. No murmur heard. SKIN: Warm, dry, no rash. NEURO: Alert and oriented x3. PSYCH: Normal mood and affect Course Course Emergency Course: Patient is aware of diagnosis, understands and agrees to treatment plan.? Anticipatory guidance given.? Patient agrees to follow-up as directed and is aware of reasons to seek care at the emergency department. Portions of this record may have been created with voice recognition software Level of Care: Express Care Visit Vital Signs Vital signs: Vital Signs Temperature 36.8 C 09/23/24 11:45 Pulse Rate 91 09/23/24 11:45 Respiratory Rate 20 09/23/24 11:45 Blood Pressure 124/60 09/23/24 11:45 Pulse Oximetry 98 09/23/24 11:45 Oxygen Delivery Room Air 09/23/24 11:45 Temperature 36.8 C 09/23/24 11:45 Pulse Rate 91 09/23/24 11:45 Respiratory Rate 20 09/23/24 11:45 Blood Pressure 124/60 09/23/24 11:45 Pulse Oximetry 98 09/23/24 11:45 Oxygen Delivery Room Air 09/23/24 11:45 Reviewed MDM - URI/Sore Throat MDM Narrative Medical decision making narrative: Differential diagnosis considered: Gupta virus, strep pharyngitis, allergic rhinitis, upper respiratory tract infection, sinusitis, rhinosinusitis, nasopharyngitis. viral pharyngitis, otitis media, otitis externa, pneumonia, bronchitis, viral cough syndrome, viral syndrome, and influenza.? Exam findings show no acute concerns or changes; patient is non-toxic appearing and is in no distress.? Patient is appropriate for outpatient treatment and follow-up. Differential Diagnosis Differential diagnosis: Likely upper respiratory infection, sinusitis, viral infection and other (cough) Medical Records Attestation: I reviewed the patient's medical records. Lab Data Attestation: I reviewed the patient's lab results. Critical Care Time Critical Care Time Critical Care Time: No Discharge Plan Discharge Clinical Impression: Sinusitis Qualifiers: Sinusitis location: pansinusitis Chronicity: acute Recurrence: not specified as recurrent Qualified Code(s): J01.40 - Acute pansinusitis, unspecified Patient Disposition: Home, Self-Care Condition: Stable Instructions: Sinusitis (ED) Additional Instructions: Increase fluids especially juices and water [id number] cough and cold medicine of your choice for your symptoms Zyrtec Claritin or Liza daily may use plain Sudafed in a.m. Tylenol or ibuprofen for any fever pain heat to the face 20-30 minutes 4-6 times a day for pain Salt water gargles, throat lozenges or throat sprays as desired Antibiotic as directed--finished the medication If your symptoms persist, change or worsen significantly before you can contact your personal physician then please, without delay, go to the emergency department for further evaluation. Follow-up with PCP in 7-10 days or sooner if needed Patient Language: Venezuelan Prescriptions: New amoxicillin-pot clavulanate 875-125 mg tablet 1 tablet PO Q12H Qty: 20 0RF Follow-up/Referrals: Lety,ARAM Marie [Primary Care Provider] - Time of Disposition: 13:25 Quality [place] Coma Scale Eyes: Open Verbal: Oriented and Alert Motor: Follows Commands Oc Coma Total Score: 15
== END 2024-09-23 13:32 | disposition home or self-care (01) ==
PROVIDERS: Emergency Provider Registered Nurse; PCP Physician Assistant
DX: J01.40 Acute pansinusitis, unspecified (principal); F17.290 Nicotine dependence, other tobacco product, uncomplicated
CPT/HCPCS: 99213; G0463

== ENCOUNTER 2024-10-15 10:56 | Outpatient (CLI) | payer OTHER, SELFPAY ==
--- OUTSIDE RECORDS SUMMARY | 2024-10-15 12:30 | XMS_ITS | Clinical Summary ---
Author Organization [facility] Address [address] [place] [address] Care Team Providers Care Cigar Head Puncher Name Role Phone Brittni Lester NP Primary Care Provide r Allergies No known active allergies Medications lithium ER (ESKALITH) 450 mg CR tablet 05/12/20 20 Active QUEtiapine (SEROquel) 50 mg tablet 05/12/20 20 Active lurasidone (LATUDA) 40 mg tablet 40 mg daily Active dicyclomine (BENTYL) 20 mg tablet Take 1 tablet (20 mg total) by mouth 2 (two) times a day for 10 days 20 tablet 01/14/20 21 Active Additional Information Patient not taking.Reported on 07/31/2022 ondansetron ODT (ZOFRAN-ODT) 4 mg disintegrating tablet Take 1 tablet (4 mg total) by mouth every 8 (eight) hours as needed for nausea or vomiting 20 tablet 08/21/19 22 Active Additional Information Patient not taking.Reported on 07/31/2022 promethazine-DM (PROMETHAZINE-DM) 1.25-3 mg/mL syrup Take 5 mL by mouth 4 (four) times a day as needed for cough (And runny nose) Collaborating physician Sohail Aleman MD 118 mL 1 06/07/20 22 Active Additional Information Patient not taking.Reported on 07/31/2022 acetaminophen-code ine (TYLENOL with CODEINE #3) 300-30 mg per tablet Take 1 tablet by mouth every 6 (six) hours as needed for pain (And cough) Collaborating physician Sohail Aleman MD 10 tablet 06/07/20 Active Additional Information Patient not taking.Reported on 07/31/2022 buPROPion XL (WELLBUTRIN XL) 150 mg 24 hr tablet Take 150 mg by mouth nightly 01/13/20 Active ARIPiprazole (ABILIFY) 5 mg tablet Take 5 mg by mouth nightly 12/13/19 22 Active hydrOXYzine (ATARAX) 10 mg tablet Take 10 mg by mouth 3 (three) times a day as needed for itching Active fluticasone propionate (FLONASE) 50 mcg/actuation nasal sprayIndications:C hronic otitis media of both ears with effusion Administer 2 sprays into each nostril daily 18.2 mL 11 07/31/19 Active Active Problems Problem Noted Date Diagnosed Date Chronic otitis media of both ears with effusion 07/31/2022 Assessment & Plan (07/31/2022 3:45 PM CRM MARKETING ANALYST): Nasal saline spray (Simply saline, [employer], [place], [place]) 2 second sprays or 2 squeezes into each nostril while looking down over the sink, do not need to sniff in. Followed by Flonase 2 sprays into each nostril while looking down over the sink, do not sniff in or blow nose after use for at least 30 minutes daily Cefdinir twice daily with a meal for 21 days Hearing test at 4-6 [facility] Referred otalgia of both ears 07/31/2022 Assessment & Plan (07/31/2022 8:58 PM CRM MARKETING ANALYST): Suspect Third molar contribution to ear pain, dental and oral surgery contact information provided today Acute viral syndrome 06/07/2022 Pelvic pain 05/13/2020 Viral warts 05/13/2020 Vaginal lesion 05/13/2020 Obesity 08/28/2014 Steatosis of liver 08/28/2014 GERD (gastroesophageal reflux disease) 2 Abdominal pain, generalized 08/24/2011 Surgical History Surgery Date Site/Laterality Comments TONSILLECTOMY 07/23/2004 - 07/22/2005 Medical History Medical History Date Comments Depression Hx of migraine headaches Acid reflux Social History Tobacco Use Types Packs/Day Years Used Date Smoking Tobacco: Every Day Cigarettes Smokeless Tobacco: Never Tobacco Cessation:Ready to Q uit: Not Asked; Counseling Given: Not Answered Alcohol Use Standard Drinks/Week Comments Yes 0 (1 standard drink = 0.6 oz pur e alcohol) occasionally Personal Safety Answer Date Recorded Getting School Help Needed Not on file 08/15 Comments No Sex and Gender Information Value Date Recorded Sex Assigned at Not on file Legal Sex Female 10:09 AM CRM MARKETING ANALYST Gender Identity Not on file Sexual Orientation Not on file Obstetrics History Para Term AB IAB SAB Ectopic Multiple Livin g Live Births 0 0 0 0 0 0 0 0 0 0 0 Last Filed Vital Signs Vital Sign Reading Time Taken Comments Blood Pressure 115/66 07/31/2022 3:29 PM CRM MARKETING ANALYST Pulse 78 07/31/2022 3:29 PM CRM MARKETING ANALYST Temperature 36.7 C (98.1 F) 07/31/2022 3:29 PM CRM MARKETING ANALYST Respiratory Rate 16 07/31/2022 3:29 PM CRM MARKETING ANALYST Oxygen Saturation 98% 07/31/2022 3:29 PM CRM MARKETING ANALYST Inhaled Oxygen Concentration - - Weight 128.5 kg (283 lb 4.8 oz) 023 3:29 PM CRM MARKETING ANALYST Height 172.7 cm (5' 8 ) 07/31/2022 3:29 PM CRM MARKETING ANALYST Body Mass Index 43.08 07/31/2022 3:29 PM CRM MARKETING ANALYST Plan of Treatment Health Maintenance Due Date Last Done Comments Cervical Cancer Screening 1997 Depression Screening 1997 Hepatitis C Screening 1997 Pneumococcal vaccine <65 (2 of 2 - PPSV23) 2003 09/26/2000 Regular Well Visit/Exam 18-64 2015 Influenza Vaccine (#1) 2024 06/12/2014, 2013 DTaP/Tdap/Td Vaccine (7 - Td or Tdap) 08/23/2025 08/23/2015, 10/03/2007, 02/27/2003, Additional history exists Varicella Vaccines Completed 10/03/2007, 08/23/1998 HPV Vaccines Completed 04/05/2010, 02/21, 10/03/2007 Insurance [facility] Address: [address] [place] [address] [facility] PL[facility] Care Teams Cigar Head Puncher Relationship Specialty Start Date End Date Brittni Lester NP [address] [place] [address] PCP - General Emergency Medicine 05/13/20
--- OUTSIDE RECORDS SUMMARY | 2024-10-15 12:30 | XMS_ITS | Referral Summary ---
Author Organization [facility] Address [address] [place] [address] Care Team Providers Care Relay Telegrapher Name Role Phone Brittni Lester NP Primary [...] Take 5 mg by mouth nightly 12/13/19 Active hydrOXYzine (ATARAX) 10 mg tablet Take [...] 07/31/2022 Assessment & Plan (07/31/2022 3:45 PM HAND DECORATOR): Nasal saline spray (Simply saline, [employer], [place], [place]) 2 second sprays or 2 squeezes into each nostril while looking down over the sink, do not need to sniff in. Followed by Flonase 2 sprays into each nostril while looking down over the sink, do not sniff in or blow nose after use for at least 30 minutes daily Cefdinir twice daily with a meal for 21 days Hearing test at 4-6 [facility] Referred otalgia of both ears 07/31/2022 Assessment & Plan (07/31/2022 8:58 PM HAND DECORATOR): Suspect Third molar contribution to ear pain, dental and oral surgery contact information provided today Acute viral syndrome 06/07/2022 Pelvic pain 05/13/2020 Viral warts 05/13/2020 Vaginal lesion 05/13/2020 Obesity 08/28/2014 Steatosis of liver 08/28/2014 GERD (gastroesophageal reflux disease) 2 Abdominal pain, generalized 08/24/2011 Social History Tobacco Use Types Packs/Day Years [...] on file Legal Sex Female 10:09 AM HAND DECORATOR Gender Identity Not on file Sexual Orientation Not on file Last Filed Vital Signs Vital Sign Reading Time Taken Comments Blood Pressure 115/66 07/31/2022 3:29 PM HAND DECORATOR Pulse 78 07/31/2022 3:29 PM HAND DECORATOR Temperature 36.7 C (98.1 F) 07/31/2022 3:29 PM HAND DECORATOR Respiratory Rate 16 07/31/2022 3:29 PM HAND DECORATOR Oxygen Saturation 98% 07/31/2022 3:29 PM HAND DECORATOR Inhaled Oxygen Concentration - - Weight 128.5 kg (283 lb 4.8 oz) 07/31/2022 3:29 PM HAND DECORATOR Height 172.7 cm (5' 8 ) 07/31/2022 3:29 PM HAND DECORATOR Body Mass Index 43.08 07/31/2022 3:29 PM HAND DECORATOR Plan of Treatment Not on file Insurance [id number] [place] [address] ARAM MARTINEZ [id number] [facility] CHOICE PLUS [facility] [employer] Care Teams Relay Telegrapher Relationship Specialty Start Date End Date Brittni Lester NP [address] [place] [address] PCP - General Emergency Medicine 05/13/20
--- OUTSIDE RECORDS SUMMARY | 2024-10-15 12:31 | XMS_ITS | Encounter Summary ---
Author Organization [facility] Address [address] [place] [address] Phone Care Team Providers Care System Architect Name Role Phone Marcella Davidson Primary Care Provider + Mildred Muñoz APRN, FRAME TRIMMER Unavailable Encounter Details Date Type Department Care Team (Late st Contact Info) Description 08/22/2024 Results Follow-Up [facility] - Family Medicine - [place] [address] [place] [address] Marcella Davidson PAC [address] [place] [address] Social History Tobacco Use Types Packs/Day Years Used Date Smoking Tobacco: Light Smoker Smokeless Tobacco: Never Alcohol Use Standard Drinks/Week Comments Not Currently 0 (1 standard drink = 0.6 oz pur e alcohol) Socially C Utilities Answer Date Recorded In the past 12 months has [employer], gas, oil, or water company threatened to shut off services in your home? No 08/04/2024 Social Connection and Isolat ion Panel [NHANES] Answer Date Recorded In a typical week, how many times do you talk on the phone with family, friends, or neighbors? More than three times a week 08/04/2024 How often do you get togethe r with friends or relatives? More than three times a week 08/04/2024 How often do you attend chur ch or uatsdin services? Never 08/04/2024 Do you belong to any clubs o r organizations such as scientologist groups, unions, fraternal or athletic groups, or school groups? No 08/04/2024 How often do you attend meet ings of the clubs or organizations you belong to? Never 08/04/2024 Are you , , di vorced, , never , or living with a partner? Never 08/04/2024 AUDIT-C Answer Date Recorded Q1: How often do you have a drink containing alc ohol? Monthly or less 08/04/2024 Q2: How many drinks containi ng alcohol do you have on a typical day when you are drinking? 1 or 2 08/04/2024 Q3: How often do you have si x or more drinks on one occasion? Less than monthly 08/04/2024 Overall Financial Resource Strain (CARDIA) Answe r Date Recorded How hard is it for you to pa y for the very basics like food, housing, medical care, and heating? Somewhat hard 08/04/2024 PHQ-2 Answer Date Recorded Total Score - Questions 1-9 0 07/23 [facility] - Occupational Stress Questionnaire Answer Date Recorded Do you feel stress - tense, restless, nervous, or anxious, or unable to sleep at night because your mind is troubled all the time - these days? To some extent 08/04/2024 Exercise Vital Sign Answer Date Recorde d On average, how many days pe r week do you engage in moderate to strenuous exercise (like a brisk walk)? 7 days 08/04/2024 On average, how many minutes do you engage in exercise at this level? 60 min 08/04/2024 Hunger Vital Sign Answer Date Recorded Within the past 12 months, y ou worried that your food would run out before you got the money to buy more. Never true 08/04/19 25 Within the past 12 months, t he food you bought just didn't last and you didn't have money to get more. Never true 08/04/2024 PRAPARE - Transportation Answer Date Re corded In the past 12 months, has l ack of transportation kept you from medical appointments or from getting medications? No 07/23 In the past 12 months, has l ack of transportation kept you from meetings, work, or from getting things needed for daily living? No 08/04/2024 Housing Stability Vital Sign Answer Lion e Recorded In the last 12 months, was t here a time when you were not able to pay the mortgage or rent on time? No 08/04/2024 In the past 12 months, how m any times have you moved where you were living? 0 08/04/2024 At any time in the past 12 m [facility], were you homeless or living in a long term (including now)? No 08/04/2024 Education Answer Date Recorded What is the highest level of school you have completed or the highest degree you have received? 12th grade 05/22/2023 Sexually Active Control Partners Comments Not Currently Male Condom, None Female, Male Comments No Sex and Gender Information Value Date Recorded Sex Assigned at Female 08/03/2024 10:55 AM COOKER TENDER Legal Sex Female 10:06 PM CDT Gender Identity Female 08/03/2024 10:55 AM COOKER TENDER Sexual Orientation Something else 08/03/2024 10 :55 AM COOKER TENDER documented as of this encounter Plan of Treatment Upcoming Encounters Date Type Department Care Team (Late st Contact Info) Description 12/31/2024 1:30 PM CDT [facility] Visit [facility] [address] [place] [address] Marcella Davidson PAC [address] [place] [address] documented as of this encounter Visit Diagnoses Not on filedocumented in this encounter Additional Health Concerns Assessment Noted Time PHQ-9 Depression Total Score: 0 08/04/19 25 2:54 PM COOKER TENDER documented as of this encounter Care Teams System Architect Relationship Specialty Start Date End Date Marcella Davidson PAC [address] [place] [address] PCP - General Physician Bull Fiddle Player 05/22/23 Mildred Muñoz APRN, FRAME TRIMMER [address] [address] Nurse Practitioner Advanced Practice Nurse 03/17/24 documented as of this encounter
--- OUTSIDE RECORDS SUMMARY | 2024-10-15 12:31 | XMS_ITS | Clinical Summary ---
Author Organization [facility] Address [address] [place] [address] Phone Care Team Providers Care Access Services Representative Name Role Phone Marcella Davidson Primary Care Provider + Mildred Muñoz APRN, ENROLLMENT MANAGEMENT MANAGER Unavailable Allergies No known active allergies Medications Calcium Carbonate Antacid (TUMS PO) Take 2 Tablets by mouth in the morning and at bedtime. Active omeprazole (PriLOSEC) 20 MG CAPSULE DELAYED RELEASE Take 20 mg by mouth daily. Active buPROPion (WELLBUTRIN) 150 MG XL tablet Take 1 Tablet by mouth every morning. 90 Tablet 05/27/2024 Active fluticasone (FLONASE) 50 MCG/ACT Suspension 2 Sprays by Nasal route daily. Use in each nostril as directed. 16 g 08/04/2024 Active Active Problems Problem Noted Date Diagnosed Date Breast pain 03/26/2024 Discoloration of skin 03/26/[address] 03/16/2024 Vitamin D deficiency 03/02/2024 Hyperlipidemia 03/02/2024 Brain fog 02/27/2024 Daytime sleepiness 02/27/2024 Snoring 02/27/2024 Morbid obesity 02/27/2024 Intractable chronic cluster headache 02/27/2024 Depression 05/22/2023 Obesity 08/28/2014 Steatosis of liver 08/28/2014 GERD (gastroesophageal reflux disease) 2 Encounters Date Type Department Care Team Description 08/22/2024 [facility] [address] [place] [address] Marcella Davidson PAC 08/18/2024 8:30 AM WINDING LATHE OPERATOR - 08/18/2024 11:59 PM WINDING LATHE OPERATOR [facility] Ul[facility]ound [facility] [place] [address] Marcelal Davidson PAC Discharge Disposition: Discharged to home or Selfcare 08/18/2024 Travel 08/04/2024 2:45 PM WINDING LATHE OPERATOR Office Visit [facility] [address] [facility] [address] Marcella Davidson PAC Swelling of right parotid gland (Primary Dx); Chronic right ear pain Discharge Disposition: Discharged to home or Selfcare 08/04/2024 Travel from Last 3 Months Immunizations Immunization Administration Dates Next Due DTAP VACCINE 02/27/2003, 9,02/09/1998,11/27 DTP-Hib 1997 Hepatitis A Vaccine,unspecif ied Formulation 10/03/2007 Hepatitis A, Pediatric, Unsp ecified Formulation 03/11/2009,11/30/2008,10/17/2005 Hepatitis B Vaccine, Pediatric/adolescent 05/12/1998,1997,1997 Hib Vaccine,unspecified Formulation 03/04/1999,0 02/09/1998,1997 Human Papillomavirus (HPV) V accine, Bivalent 10/03/2007 Human Papillomavirus Vaccine (HPV), quadrivalent 04/05/2010,03/11/2009 Inactivated Polio Vaccine 02/27/2003,,1997,09/25 Influenza Vaccine 03/26/2024 Influenza Vaccine Quadrivalent Nasal 06/12/2014 Influenza Vaccine, Quadrivalent, PF 05/22/2023 Influenza,Split Virus,Trivalent,Injectable,PF 03/26/2024 MMR Vaccine 08/23/2015,02/27/2003,03/04/1999 Meningococcal MCV4, Unspecif ied Formulation 03/11/2009 Meningococcal MCV4O 08/27/2014 Pneumococcal Vaccine Peds - 7 Valent 09/26/2000 TD VACCINE 10/03/2007 TDAP Vaccine 08/23/2015 Varicella Vaccine Live 10/03/2007,08/23/1998 Family History Medical History Relation Name Comments Cancer Maternal Grandfather Alex Tobias Lung cancer Cancer Maternal Grandmother Stefan Aguilera Breast cancer Hypertension Mother Morgan Relation Name Status Comments Father Alive Maternal Grandfather Alex Tobias Maternal Grandmother Stefan Aguilera Mother Morgan Alive Social History Tobacco Use Types Packs/Day Years Used Date Smoking Tobacco: Light Smoker Smokeless Tobacco: Never Tobacco Cessation:Ready to Q uit: Not Asked; Counseling Given: No Alcohol Use Standard Drinks/Week Comments Not Currently 0 (1 standard drink = 0.6 oz pur e alcohol) PFSwebities Answer Date Recorded In the past 12 months has [employer], gas, oil, or water [employer] threatened to shut off services in your [...] often do you attend chur ch or mandaen services? Never 08/04/2024 Do you belong to [...] Total Score - Questions 1-9 0 07/23 [facility] - Occupational Stress Questionnaire Answer Date [...] any time in the past 12 m [facility], were you homeless or living in a fpc (including now)? No 08/04/2024 Education Answer Date Recorded What is the highest level of school you have completed or the highest degree you have received? 12th grade 05/22/2023 Sexually Active Control Partners Comments Not Currently Male Condom, None Female, Male Comments No Sex and Gender Information Value Date Recorded Sex Assigned at Female 08/03/2024 10:55 AM WINDING LATHE OPERATOR Legal Sex Female 10:06 PM CDT Gender Identity Female 08/03/2024 10:55 AM WINDING LATHE OPERATOR Sexual Orientation Something else 08/03/2024 10 :55 AM WINDING LATHE OPERATOR Last Filed Vital Signs Vital Sign Reading Time Taken Comments Blood Pressure 110/70 08/04/2024 2:38 PM WINDING LATHE OPERATOR Pulse 74 08/04/2024 2:38 PM WINDING LATHE OPERATOR Temperature 36.6 C (97.9 F) 08/04/2024 2:38 PM WINDING LATHE OPERATOR Respiratory Rate 18 07/02/2024 12:35 PM WINDING LATHE OPERATOR Oxygen Saturation 97% 08/04/2024 2:38 PM WINDING LATHE OPERATOR Inhaled Oxygen Concentration - - Weight 126.6 kg (279 lb) 08/04/2024 2:38 PM WINDING LATHE OPERATOR Height 172.7 cm (5' 8 ) 08/04/2024 2:38 PM WINDING LATHE OPERATOR Body Mass Index 42.42 08/04/2024 2:38 PM WINDING LATHE OPERATOR Plan of Treatment Upcoming Encounters Date Type Department Care Team (Late st Contact Info) Description 12/31/2024 1:30 PM CDT [facility] Family [facility] [address]2 [place] [address] Marcella Davidson, PAC [address] [place] [address] Health Maintenance Due Date Last Done Comments Hepatitis C Virus (HCV) Screening 1997 Hepatitis B Immunization (3 of 3 - 3-dose series) 07/07/1998 05/12/1998, 1997, 1997 Pneumococcal Immunization Combined (1 of 2 - PCV) 2016 09/26/2000 Pap Smear 02/04/2022 02/04/2019, 02/04/2019 SARS-COV-2 Immunization ( season) 2024 DTaP/Tdap/Td Immunization (7 - Td or Tdap) 08/23/2025 08/23/2015, 10/03/2007, 02/27/2003, Additional history exists Td Immunization Every 10 Years (Adults With 1 Tdap) 08/23/2025 08/23/2015, 10/03/2007 Respiratory Syncytial Virus (RSV) Immunization (Adult) (1 - 1-dose 75+ series) 2072 Human Papillomavirus (HPV) Immunization Discontinued 04/05/2010, 03/11/2009, 10/03/2007 Meningococcal Immunization (ACWY) Completed 08/27/2014, 03/11/2009 Influenza Immunization Completed , 03/26/2024, 05/22/2023, Additional history exists Rotavirus Immunization Aged Out No lo nger eligible based on patient's age to complete this topic Procedures Procedure Name Priority Date/Time Associated Diagnosis Comments US SOFT TISSUE HEAD AND NECK Routine 08/18/2024 8:53 AM WINDING LATHE OPERATOR Swelling of right parotid gland PATHOLOGY CYTOLOGY PATTERN MECHANIC Routine 02/04/2019 9:48 AM CDT Well woman exam with routine gynecological exam from Last 3 Months or Most Recently Relevant to Health Maintenance Results * US SOFT TISSUE HEAD AND NECK (08/18/2024 8:53 AM WINDING LATHE OPERATOR) Anatomical Region Laterality Modality BODY N/A Ultrasound 08/18/2024 9:59 AM WINDING LATHE OPERATOR Impressions 08/18/2024 10:01 AM WINDING LATHE OPERATOR IMPRESSION: Lymph node at the area of interest 0.9 x 0.5 x 0.9 cm, although nonspecific, most likely reactive. Narrative 08/18/2024 10:01 AM WINDING LATHE OPERATOR EXAM DESCRIPTION: US SOFT TISSUE HEAD AND NECK REASON FOR STUDY: Right parotid swelling for 1 year. TECHNIQUE: A Dynamic assessment was performed of the right parotid region by the cultural anthropology professor, with selected grayscale and color Doppler images acquired and recorded in PACS. COMPARISON: None. FINDINGS: At the area of interest there is a right periparotid lymph node with echogenic hilum 0.9 x 0.5 x 0.9 cm. There is no other demonstrated mass, fluid collection, edema, or other abnormality. The demonstrated portions of the right parotid gland appear to be normal. THIS IS AN ELECTRONICALLY VERIFIED FINAL REPORT 08/18/2024 9:59 AM - Electronically signed by Scott Whyte M.D. CH: DEAN Report ID: [id number] Reading Location: [id number] Procedure Note Scott Whyte Jr., MD - 08/18/2024 EXAM DESCRIPTION: US SOFT TISSUE HEAD AND NECK REASON FOR STUDY: Right parotid swelling for 1 year. TECHNIQUE: A Dynamic assessment was performed of the right parotid region by the cultural anthropology professor, with selected grayscale and color Doppler images acquired and recorded in PACS. COMPARISON: None. FINDINGS: At the area of interest there is a right periparotid lymph node with echogenic hilum 0.9 x 0.5 x 0.9 cm. There is no other demonstrated mass, fluid collection, edema, or other abnormality. The demonstrated portions of the right parotid gland appear to be normal. THIS IS AN ELECTRONICALLY VERIFIED FINAL REPORT 08/18/2024 9:59 AM - Electronically signed by Scott Whyte M.D. CH: Report ID: [id number] Reading Location: [id number] IMPRESSION: Lymph node at the area of interest 0.9 x 0.5 x 0.9 cm, although nonspecific, most likely reactive. us Marcella Davidson PAC IMG US ORDERABLES Final Result * PATHOLOGY CYTOLOGY PATTERN MECHANIC (02/04/2019 9:48 AM CDT) SPECIMEN ADEQUACY Satisfactory for evaluation. Endocervical/transf ormation zone component is absent. 02/12/2019 9:35 AM CDT [facility] DESCRIPTIVE DIAGNOSIS NEGATIVE FOR INTRAEPITHELIAL LESIONS OR MALIGNANCY. 02/12/2019 9:35 AM CDT [facility] MATED EXAMINATION Analysis of this sample has been assisted by an automated imaging and review system ([employer] Imaging System, [employer], [place], [place]). This case is further evaluated and finalized by a inventory control manager and/or pathologist. 02/12/2019 9:35 AM CDT [facility] DISCLAIMER The PAP smear is a screening test designed to detect cancerous or precancerous cells of the uterine cervix. It is one of the best means available for detection of cervical cancer but still carries an inherent false-negative rate. The consequences of a false-negative PAP result can be minimized by adhering to current screening guidelines. The following are general guidelines recommended by the ACS, ASCP, ASCCP, and ACOG: PAP testing is recommended every three years for women 21-29, Co-Testing , a PAP test in conjunction with an HPV (Human Papillomavirus) test for women ages 30-65, and no PAP or HPV testing for women under the age of 21 or older than 65 unless clinically indicated. 02/12/2019 9:35 AM CDT [facility] Case Report Gynecologic Cytology Report Case: [id number] Authorizing Provider: Brittni Lester, Collected: 02/04/2019 09:48 AM TARA JALLOH Ordering [facility] Received: 02/04/2019 09:48 AM [facility] Screen: Monika Lozada Specimen: TP Screen, CERVIX/ENDOCERVIX/V AGINAL 02/12/2019 9:35 AM CDT [facility] HPV Reflex if ASCUS? Yes 02/12/2019 9:35 AM CDT [facility] Specimen of unknown material (specimen) (Cervix/Endocerv ix/Vaginal) Non-Phlebotomy Collection / Unknown 02/04/2019 9:48 AM CDT 02/04/2019 9:48 AM CDT us Brittni Lester APRN, CNP PATHOLOGY/CYTOL OGY ORDERABLES Final Result [facility] [address] [place] [address], from Last 3 Months or Most Recently Relevant to Health Maintenance Insurance [facility] Care Teams Access Services Representative Relationship Specialty Start Date End Date Marcella Davidson PAC [address] [place] [address] PCP - General Physician Clinical Assistant 05/22/23 Mildred Muñoz APRN, ENROLLMENT MANAGEMENT MANAGER [address] [address] Nurse Practitioner Advanced Practice Nurse 03/17/24
--- OUTSIDE RECORDS SUMMARY | 2024-10-15 12:31 | XMS_ITS | Encounter Summary ---
Author Organization [facility] Address [address] [place] [address] Phone Care Team Providers Care Spark Plug Assembler Name Role Phone Brittni Lester APRN, CNP Primary Care P roder Marcella Davidson Primary Care Provider + Mildred Muñoz APRN, SINKER PULLER Unavailable [phone] Reason for Referral * Consult, Test & Initiate Treatment (Routine) - Closed Specialty Diagnoses / Procedures Referred By Jeremy gupta Referred To Contact Gastroenterology Diagnoses Gastroesophageal reflux disease, unspecified whether esophagitis present Brittni Lester APRN, SINKER PULLER [address] [place] [address] Phone: tel: fax: [facility] - Gastroenterology - [place] [address] [place] [address] Phone: tel: fax: Referral ID Status Reason Start Date Expiration Date Visits Re quested Visits Authorized [id number] Closed 02/24/2021 1 1 Scheduling Instructions Catalina is being referred for GERD, constipation. See below for Catalina's current medications, allergies and problem list. Please contact patient for scheduling questions or concerns. CURRENT MEDS: Current Outpatient Medications: dicyclomine (BENTYL) 20 MG Tablet, Take 1 Tablet by mouth 3 times daily (before meals)., Disp: 270 Tablet, Rfl: 1 linaclotide (LINZESS) 145 MCG Capsule, Take 1 Capsule by mouth every morning (before breakfast)., Disp: 90 Capsule, Rfl: 1 omeprazole (PriLOSEC) 20 MG CAPSULE DELAYED RELEASE, Take 1 Capsule by mouth daily., Disp: 90 Capsule, Rfl: 3 No current facility-administered medications for this visit. ALLERGIES: No Known Allergies PROBLEM LIST: Patient Active Problem List: GERD (gastroesophageal reflux disease) Obesity Steatosis of liver Reason for Visit * Reason Onset Date Comments Prior Authorization 02/24/2021 Encounter Details Date Type Department Care Team (Late st Contact Info) Description 02/24/2021 Telephone [facility] Outpatient [address] [place] [address] Brittni Lester APRN, TARA [address] [place] [address] Prior Authorization Social History Tobacco Use Types Packs/Day Years Used Date Smoking Tobacco: Never Smokeless Tobacco: Never Alcohol Use Standard Drinks/Week Comments Yes 0 (1 standard drink = 0.6 oz pur e alcohol) Socially PHQ-2 Answer Date Recorded Total Score - Questions 1-9 14 03/23 Education Answer Date Recorded What is the highest level of school you have completed or the highest degree you have received? Some college, no degree 08/23/2020 Comments No Sex and Gender Information Value Date Recorded Sex Assigned at Female 08/03/2024 10:55 AM DOCTOR OF NAPRAPATHY Legal Sex Female 10:06 PM CDT Gender Identity Female 08/03/2024 10:55 AM DOCTOR OF NAPRAPATHY Sexual Orientation Something else 08/03/2024 10 :55 AM DOCTOR OF NAPRAPATHY COVID-19 Exposure Response Date Recorded In the last month, have you been in contact with someone who was confirmed or suspected to have Coronavirus / COVID-19? No / Unsure 02/11/2021 8:58 AM CDT documented as of this encounter Miscellaneous Notes * Telephone Encounter - Trina Varma RN - 02/24/2021 10:26 AM CDT Called patient to inform-agrees to GI referral and informed to go to ER for any issues prior to receiving call to schedule GI appointment. Verbalized understanding. * Telephone Encounter - Brittni Lester APN, CNP - 02/24/2021 10:09 AM CDT Cancel imaging and refer to GI * Telephone Encounter - Evangelina Lloyd - 02/24/2021 9:57 AM CDT Auth Denied Payer: [facility] CPT(s): 52596 Authorization denied through: [employer] Phone number called: [phone] Reference number / sales representative groceries's name and time of call: Pamela Peer to Peer review offered by Payer: Yes Additional Notes (if needed): Auth denied due to not being medically necessary/peer to peer is offered for 30 days by calling [phone] and using ins id #[id number] documented in this encounter Plan of Treatment Upcoming Encounters Date Type Department Care Team (Late st Contact Info) Description 12/31/2024 1:30 PM CDT [facility] [address] [place] [address] Marcella Davidson PAC [address] [place] [address] Scheduled Referrals Name Type Priority Associated Diagnoses Order Schedule GASTROENTEROLOGY REFERRAL Outpatient Referral Routine Gastroesophageal Reflux Disease, Unspecified Whether Esophagitis Present Expected: 02/25/2021, Expires: 05/27/2021 documented as of this encounter Visit Diagnoses Diagnosis Gastroesophageal reflux disease, unspecified whether esophagitis present- Primary documented in this encounter Additional Health Concerns Infection Onset Date Last Indicated Resolved Time COVID - 19 07/12/2021 07/23/2021 07/23/2021 1:23 PM DOCTOR OF NAPRAPATHY COVID - 19 Confirmed 07/23/2021 07/23/2021 022 12:16 AM DOCTOR OF NAPRAPATHY COVID - 19 10/24/2021 10/24/2021 11/13/2021 12:1 6 AM CDT COVID - 19 12/19/2021 12/19/2021 01/08/2022 12:1 6 AM CDT COVID - 19 04/19/2022 04/19/2022 04/29/2022 12:1 6 AM CDT COVID - 19 05/26/2022 05/26/2022 06/05/2022 12:1 6 AM DOCTOR OF NAPRAPATHY COVID - 19 07/06/2022 07/06/2022 07/16/2022 12:1 6 AM DOCTOR OF NAPRAPATHY Respiratory Rule Out - RPA 10/09/2022 10/09/2022 0 10/09/2022 9:57 AM CDT COVID - 19 05/21/2024 05/21/2024 05/21/2024 11:3 7 AM CDT Respiratory Rule-Out 05/21/2024 05/21/2024 024 11:38 AM CDT Assessment Noted Time PHQ-9 Depression Total Score: 14 020 11:00 AM CDT documented as of this encounter Care Teams Spark Plug Assembler Relationship Specialty Start Date End Date Brittni Lester APRN, SINKER PULLER [address] [place] [address] PCP - General Advanced Practice Nurse 01/08/1905/21 Marcella Davidson PAC [address] [place] [address] PCP - General Physician Precast Worker 05/22/23 Mildred Muñoz APRN, SINKER PULLER [address] [place] [id number] Nurse Practitioner Advanced Practice Nurse 03/17/24 documented as of this encounter
== END 2024-10-15 10:57 | disposition home or self-care (01) ==
LOC: ANHBWCAUD 10:56
PROVIDERS: PCP Physician Assistant; Visit Provider Otolaryngology Otolaryngology/Facial Plastic Surgery
DX: H90.11 Conductive hearing loss, unilateral, right ear, with unrestricted hearing on the contralateral side (principal)
CPT/HCPCS: 92557; 92567